=== PATIENT | female | born 1995 | race African-American/Black ===

== ENCOUNTER 2021-08-04 16:35 | Emergency (ER) | payer OTHER ==
[~2021-08-04] VITALS: Ht 167.6 cm; Wt 74.8 kg
[2021-08-04 16:40] VITALS: BP_SYST 108
--- NOTE | 2021-08-04 16:40 | NUR ---
PT TRIAGED AND PLACED IN ED LOBBY FOR AVAILABLE BED IN MAIN ED
--- NOTE | 2021-08-04 16:42 | NUR ---
PT CAME TO ER REPORTS FELL WHILE SKATEBOARDING, BODYWEIGHT LANDING ON LEFT ANKLE, SMALL ABRASION / PAIN. PT UNABLE TO AMBULATE DUE TO PAIN. [id number], VSS
--- NOTE | 2021-08-04 16:55 | NUR ---
ER DR. CONSTANTINO EXAMINING PT
--- NOTE | 2021-08-04 17:00 | NUR ---
Patient transported to radiology via XRAY, accompanied by STAFF.
--- NOTE | 2021-08-04 17:18 | NUR ---
Patient to ER bed 8 to gown for evaluation. Side rails up. Report given to BETI HAYS.
[2021-08-04] MEDS ORDERED: IBUP-1969 PO (18:07)
[2021-08-04] MEDS ORDERED: HYDR-3917 PO (18:07)
[2021-08-04] MEDS: MORPHINE 4 MG INJ. 4 MG/ML VIAL IM ONE (18:24)
--- NOTE | 2021-08-04 18:25 | NUR ---
Pt medicated as ordered for pain, well tolerated.
--- NOTE | 2021-08-04 18:43 | NUR ---
Patient given written and verbal discharge instructions and verbalizes understanding. ER MD discussed with patient the results and treatment provided. Patient in stable condition. ID arm band removed. Rx of Hydrocodone /Ibuprofen given. Patient educated on pain management and to follow up with PMD. Pain Scale 4/10. Opportunity for questions provided and answered. Medication side effect fact sheet provided.
[2021-08-04 18:44] VITALS: BP_SYST 108
== END 2021-08-04 18:44 | disposition home or self-care (01) ==
LOC: SED 16:35
DX: S82.62XA Displaced fracture of lateral malleolus of left fibula, initial encounter for closed fracture (principal); Z88.0 Allergy status to penicillin; V00.131A Fall from skateboard, initial encounter; Y93.51 Activity, roller skating (inline) and skateboarding; Y92.89 Other specified places as the place of occurrence of the external cause; Y99.8 Other external cause status
CPT/HCPCS: 29515; 73610; 96372; 99283; J2270